=== PATIENT | female | born 1995 | race Caucasian/White ===

== ENCOUNTER 2025-04-20 10:30 | Outpatient (AMB) | payer OTHER, SELFPAY ==
--- NOTE | 2025-04-20 10:33 | MHC.OFFVIS ---
Intake Visit Reasons: Neuropathy Allergies No Known Allergies Allergy (Verified 04/18/25 08:45) HPI Comments Details: The patient is a 29-year-old female presenting with paresthesia of the lower back and hands, and headache. Over the past year, she has experienced tingling sensations in her back, similar to when a foot falls asleep. These episodes occur randomly, usually a couple of times a week, lasting about 20 minutes. This sensation begins in the lower back, occasionally spreading upward and affecting the arms and hands. Despite this, the sensation does not extend to her legs, nor does it weaken them or affect urination. The condition has neither worsened over time nor been triggered by stress factors. In addition, the patient reports having headaches about five times monthly, which manifest with frontal pressure and throbbing pain. These headaches are accompanied by light and noise sensitivity but no nausea. Tylenol provides relief, and headaches occasionally follow the paresthesia episodes but not consistently. Her family medical history reveals that her siblings have been diagnosed with Multiple Sclerosis. [facility] Surgical History (Updated 04/18/25 @ 08:44 by Jerrica Leonard MA) Hx of tonsillectomy Review of Systems Const Details: Constitutional:?No fever, chills, fatigue, weight loss, or night sweats. HEENT:?No vision changes, hearing loss, nasal congestion, sore throat. Cardiovascular:?No chest pain, palpitations, orthopnea, PND, or leg swelling. Respiratory:?No cough, shortness of breath, wheezing, or hemoptysis. Gastrointestinal:?No nausea, vomiting, abdominal pain, diarrhea, or constipation. Genitourinary:?No dysuria, frequency, incontinence, or hematuria. Musculoskeletal:?No joint pain, stiffness, weakness, or muscle aches. Neurological:? As in HPI Psychiatric:?No anxiety, depression, mood swings, sleep disturbance, or hallucinations. Endocrine:?No heat/cold intolerance, polydipsia, polyuria, or hair/skin changes. Hematologic/Lymphatic:?No easy bruising, bleeding, or lymphadenopathy. Integumentary (Skin):?No rash, lesions, itching, or color changes. Allergic/Immunologic:?No seasonal allergies, hives, or recurrent infections. Physical Exam Neuro Other: Mental Status: Alert and oriented to person, place, and time. Normal attention. Normal spontaneous speech, fluency, and comprehension. No obvious issues with mood and memory. Affect is appropriate. Cranial Nerves: CN II: Visual leonardo full to confrontation, visual acuity intact. CN III, IV, : Pupils equal, round, reactive to light and accommodation. Extraocular movements are normal. CN V: Facial sensation is normal. CN VII: Facial movements symmetrical. CN VIII: Hearing intact to bedside conversation is normal. CN IX, X: Palate elevates symmetrically. CN XI: Shoulder shrug and head turn symmetrical. CN XII: Tongue midline without atrophy or fasciculations. Motor: Bulk and tone normal in all extremities. No significant muscle weakness in arms and legs. No drift. Reflexes: Deep tendon reflexes 2+ and symmetric. Plantar response down-going bilaterally. Coordination: Fzlsqm-qx-vbrw and tkqn-ic-cmfg testing normal. No dysmetria. Gait and Station: No obvious gait abnormality. No ataxia or instability. Sensory: Intact to light touch, pinprick, and vibration. Romberg is negative. Extrapyramidal: Full facial expressions and blinking. No rigidity. Movements are appropriate with no tremor or abnormality. Speech: Normal; no dysarthria or tremor. Assessment & Plan Assessment & Plan (1) Paresthesias: Code(s): R20.2 - Paresthesia of skin Category: Medical (2) Migraine with aura: Code(s): G43.109 - Migraine with aura, not intractable, without status migrainosus Category: Medical Qualifiers: Status migrainosus presence: without status migrainosus Intractability: not intractable Qualified Code(s): G43.109 - Migraine with aura, not intractable, without status migrainosus Plan Impression: Young woman with c/o uncomfortable paresthesias in lower and middle back, intermittent, for a year. She also c/o similar feeling in her hands and arms, progressing in a few minutes, ending in 5-20 minutes, and sometimes ending up with a headache lasting for hours. Diagnostic possibilities included migraine with aura with additional possibility of demylinating disease. There was no overt psychological disease. Rec: MRI cervical and thoracic spine w and w/o cont. She might also need MRI of brain. Orders: Orders MR cervical spine wo/w con Today R20.2 - Paresthesia of skin MR thoracic spine wo/w con Today R20.2 - Paresthesia of skin Coding Level of Care Code Tele New Pt Level 5 (96493) Diagnoses Paresthesias R20.2 Migraine with aura and without status migrainosus, not intractable G43.109 Status migrainosus presence: without status migrainosus Intractability: not intractable
--- OUTSIDE RECORDS SUMMARY | 2025-04-20 11:21 | XMS_ITS ---
[facility] Name [facility] Results Test Name/Text Value Interpretation Date Range Source MCV RBC AUTO 88.2 fL Normal 08/20/2023 78 - 100 [facility] H HGB BLD MCNC 13.2 g/dL Normal 08/20/2023 12.5 - 16 [facility] H MONOCYTES NO. BLD AUTO 1.0 K/uL Above high normal 0 - 0.8 [facility] HCT VFR BLD AUTO 38.7 % Normal 08/20/2023 37 - 47 [facility] IMMATURE GRANULOCYTE, ABSOLUTE 0.05 k/uL Normal 08/20/2023 - 0.1 [facility] MONOCYTES NFR BLD AUTO 8.9 % Normal 08/20/2023 2 - 12 [facility] WBC NO. BLD AUTO 11.5 K/uL Above high normal 08/20/2023 4 - 10.5 [facility] PLATELET NO. BLD AUTO 238.0 K/uL Normal 08/20/2023 150 - 450 [facility] NUCLEATED RBC 0.0 % Normal 08/20/2023 0 - [address] [facility] NFR BLD AUTO 0.6 % Normal 08/20/2023 0 - 6 [facility] PMV BLD AUTO 11.7 fL Above high normal 08/20/2023 7.4 - 11 .4 [facility] RBC NO. BLD AUTO 4.39 M/uL Normal 08/20/2023 4.2 - 5.4 CT [facility] BASOPHILS IN BLOOD BY AUTOMATED COUNT 0.1 K/uL Normal 08/20/2023 0 - 0.2 [facility] RDW RBC AUTO RTO 12.5 % Normal 08/20/2023 12.1 - 16.2 [facility] LYMPHOCYTES NO. BLD AUTO 2.8 K/uL Normal 08/20/2023 1 - 3.2 [facility] NEUTROPHILS NFR BLD AUTO 65.0 % Normal 08/20/2023 44 - 74 [facility] LYMPHOCYTES NFR BLD AUTO 24.7 % Normal 08/20/2023 20 - 48 [facility] BASOPHILS NFR BLD AUTO 0.4 % Normal 08/20/2023 0 - [facility] RBC AUTO MCNC 34.1 g/dL Normal 08/20/2023 32 - 36 [facility] NEUTROPHILS NO. BLD AUTO 7.4 K/uL Normal 08/20/2023 1.8 - 7.8 [facility] EOSINOPHIL NO. BLD AUTO 0.1 K/uL Normal 08/20/2023 0 - 0 .5 [facility] IMMATURE GRANULOCYTE, PERCENT 0.4 % Normal 08/20/2023 0 - 1 [facility] MCH RBC QN AUTO 30.1 pg Normal 08/20/2023 25 - 33 [facility] PT TIME PPP 12.4 sec Normal 08/20/2023 10.5 - 13.3 [facility] INR PPP 1.0 Normal 08/20/2023 0.8 - 1.1 [facility] BUN SERPL MCNC 8.0 mg/dL Normal 08/20/2023 7 - 17 [facility] CALCIUM SERPL MCNC 9.5 mg/dL Normal 08/20/2023 8.4 - 10.[facility] CREAT SERPL MCNC 0.6 mg/dL Normal 08/20/2023 0.5 - 1 CT [facility] HCO3 SER SCNC 26.0 mmol/L Normal 08/20/2023 24 - 32 [facility] ANION GAP SERPL SCNC 8.0 mmol/L Normal 08/20/2023 5 - [facility] GLUCOSE SERPL MCNC 100.0 mg/dL Normal 08/20/2023 70 - 199 [facility] CHLORIDE SERPL SCNC 101.0 mmol/L Normal 08/20/2023 98 - 1 07 [facility] SODIUM SERPL SCNC 135.0 mmol/L Normal 08/20/2023 135 - 14 [facility] POTASSIUM [facility]PL SCNC 3.7 mmol/L Normal 08/20/2023 3.5 - 5 .1 [facility] GLUCOSE BLDC GLUCOMTR MCNC 102.0 mg/dL Normal 08/20/2023 70 - 199 [facility] Encounters Encounter Type Encounter Reason Primary Diagnosis Location Date Inpatient Anesthesia of skin Anesthesia of skin [facility] 08/20/2023 Emergency Unspecified symptoms and signs involving the nervous system Unspecified symptoms and signs involving the nervous system [facility] 08/20/2023 Care Team Organization Name Specialty Phone Email Start Date End Da te [facility] 3 02/20/2025 [facility] 202202/20/2025 [facility] 08/20/202307/30 [facility] 08/20/2023 [facility] ENMANUEL COY Primary [facility] 08/05/2022 05/16/20 24
--- OUTSIDE RECORDS SUMMARY | 2025-04-20 11:21 | XMS_ITS | Clinical Summary ---
Author Organization [address] [facility] Address [address] [place] [address] Phone Care Team Providers Care C.O.D. Audit Clerk Name Role Phone Kim Edwards MD Primary Care Provider [phone] Allergies No known active allergies Medications cholecalciferol (Vitamin D3) 50 mcg (2,000 unit) tablet Take 1 tablet (2,000 Units total) by mouth 1 (one) time each day. 90 tablet 2 12/29/2024 Active Surgical History Surgery Date Site/Laterality Comments TONSILLECTOMY N/A PROCEDURE: HISTORICAL TONSILLECTOMY Family History Medical History Relation Name Comments Breast cancer Aunt Maternal, 30s Diabetes Brother Breast cancer Maternal Grandmother Breast cancer Other 1 Male maternal cousin, 30s Breast cancer Other 2 Male maternal cousin, 30s Brain cancer Other 3 Nephew Other: skin cancer Sister Relation Name Status Comments Aunt Brother Maternal Grandmother Other 1 Alive Other 2 Alive Other 3 Alive Sister Social History Tobacco Use Types Packs/Day Years Used Date Smoking Tobacco: Never Smokeless Tobacco: Never Tobacco Cessation:Counseling Given: Not Answered Alcohol Use Standard Drinks/Week Comments Yes 1 (1 standard drink = 0.6 oz pur e alcohol) Comments Unknown Sex and Gender Information Value Date Recorded Sex Assigned at Not on file Legal Sex Female 11:31 PM EST Gender Identity Not on file Sexual Orientation Not on file Obstetrics History Last Filed Vital Signs Vital Sign Reading Time Taken Comments Blood Pressure 100/76 12/26/2024 3:30 PM EDT Pulse 90 12/26/2024 3:30 PM EDT Temperature 36.9 C (98.4 F) 12/26/2024 3:30 PM EDT Respiratory Rate - - Oxygen Saturation 100% 12/26/2024 3:30 PM EDT Inhaled Oxygen Concentration - - Weight 44.5 kg (98 lb) 12/26/2024 3:30 PM EDT Height 157.5 cm (5' 2 ) 06/22/2024 9:27 AM EDT Body Mass Index 17.92 06/22/2024 9:27 AM EDT Plan of Treatment Upcoming Encounters Date Type Department Care Team (Late st Contact Info) Description 06/23/2025 10:30 AM EDT Office Visit Internal Medicine - [place] [address] [place] [address] Kim Edwards MD [address] [place] [address] Health Maintenance Due Date Last Done Comments Hepatitis B Vaccines (1 of 3 - 19+ 3-dose series) 2012 Cervical Cancer Screening: P ap Smear 2014 Social Influencers of Health Screening 09/11/2022 COVID-19 Vaccine (1 - 2023-2 5 season) 2024 Depression Screening 09/28/2024 Influenza Vaccine (#1) 2025 DTaP,Tdap,and Td Vaccines (2 - Td or Tdap) 11/03/2028 11/03/2018 Cholesterol Screening (Lipid Panel) 12/27/2029 12/27/2024, 06/22/2024 HIV Screening Completed 12/27/2024 Hepatitis C Screening Completed 12/27/2024 HIB Vaccines Aged Out No longer eligi ble based on patient's age to complete this topic HPV Vaccines Aged Out No longer eligi ble based on patient's age to complete this topic Hepatitis A Vaccines Aged Out No long er eligible based on patient's age to complete this topic IPV Vaccines Aged Out No longer eligi ble based on patient's age to complete this topic MMR Vaccines Aged Out No longer eligi ble based on patient's age to complete this topic Meningococcal ACWY Vaccine Aged Out N o longer eligible based on patient's age to complete this topic Meningococcal B Vaccine Aged Out No l onger eligible based on patient's age to complete this topic Pneumococcal Vaccine: Pediatrics (0 to 5 Years) and At-Risk Patients (6 to 49 Years) Aged Out No longer eligible b ased on patient's age to complete this topic RSV Immunization Patients Under 20 months Aged Out No longer eligible b ased on patient's age to complete this topic Varicella Vaccines Aged Out No longer eligible based on patient's age to complete this topic Procedures Procedure Name Priority Date/Time Associated Diagnosis Comments HEPATITIS C ANTIBODY Routine 12/27/2024 8:23 AM EDT Vitamin D deficiency Other fatigue Adult general medical examination Abnormal weight loss HIV 1, 2 ANTIBODY, P24 ANTIGEN WITH REFLEX TO DIFFERENTIATION Routine 12/27/2024 8:23 AM EDT Vitamin D deficiency Other fatigue Adult general medical examination Abnormal weight loss LIPID PANEL WITH REFLEX TO DIRECT LDL Routine 12/27/2024 8:23 AM EDT Vitamin D deficiency Other fatigue Adult general medical examination Abnormal weight loss from Last 3 Months or Most Recently Relevant to Health Maintenance Results * Hepatitis C antibody (12/27/2024 8:23 AM EDT) Hepatitis C Antibody Negative Negative LAB CHEMISTRY METHOD 12/27/2024 12:10 PM EDT [facility] Blood Venous blood specimen / Unknown Venipuncture / Unknown 12/27/2024 8:23 AM EDT 12/27/2024 9:01 AM EDT us Kim Edwards MD LAB BLOOD ORDERABLES Final Res ult [facility] [address] [place] [address], [place] [phone] * HIV 1,2 antibody, p24 antigen with reflex to differentiation (12/27/2024 8:23 AM EDT) HIV Combo AB/AG Negative Negative LAB CHEMISTRY METHOD 12/27/2024 12:11 PM EDT [facility] Blood Venous blood specimen / Unknown Venipuncture / Unknown 12/27/2024 8:23 AM EDT 12/27/2024 9:01 AM EDT Narrative [facility] - 12/27/2024 12:11 PM EDT This assay is a 4th generation assay allowing for earlier detection of HIV infection by detecting the presence of the HIV-1 p24 antigen as well as the traditional antibodies to HIV type 1 (including group O) and type 2. Use of a 4th generation assay is the current CDC recommendation for HIV screening. us Kim Edwards MD LAB BLOOD ORDERABLES Final Res ult [facility] [address] [place] [address], [place] [phone] * Lipid panel with reflex to direct LDL (12/27/2024 8:23 AM EDT) Cholesterol 164 0 - 200 mg/dL LAB CHEMISTRY METHOD 12/27/2024 9:56 AM [facility] Triglycerides 75 0 - 150 mg/dL LAB CHEMISTRY METHOD 12/27/2024 9:56 AM [facility] HDL 63 >=40 mg/dL LAB CHEMISTRY METHOD 12/27/2024 9:56 AM [facility] LDL Calculated 86 0 - 100 mg/dL LAB CHEMISTRY METHOD 12/27/2024 9:56 AM [facility] VLDL Cholesterol Rudy 15 mg/dL LAB CHEMISTRY METHOD 12/27/2024 9:56 AM [facility] Non HDL Chol. (LDL+VLDL) 101 <145 mg/dL LAB CHEMISTRY METHOD 12/27/2024 9:56 AM [facility] Chol/HDL Ratio 2.6 0.0 - 4.4 LAB CHEMISTRY METHOD 12/27/2024 9:56 AM [facility] Blood Venous blood specimen / Unknown Venipuncture / Unknown 12/27/2024 8:23 AM EDT 12/27/2024 9:01 AM EDT us Kim Edwards MD LAB BLOOD ORDERABLES Final Res ult [facility] [address] [place] [address], from Last 3 Months or Most Recently Relevant to Health Maintenance Insurance MEDICAID - [place] [facility] [address] [employer] Care Teams C.O.D. Audit Clerk Relationship Specialty Start Date End Date Kim Edwards MD [address] [facility] [address] [place] [id number] PCP - General Internal Medicine 02/12/22
--- OUTSIDE RECORDS SUMMARY | 2025-04-20 11:21 | XMS_ITS | Clinical Summary ---
Author Organization [facility] Address [address] [place] [address] Care Team Providers Care Express Manager Name Role Phone Unavailable Primary Care Provider Unavailabl e Allergies No known active allergies Medications Medication Sig Dispensed Refills Start Date End Date Status promethazine (PHENERGAN) 12.5 MG tablet Take 1 tablet (12.5 mg total) by mouth every 6 (six) hours as needed for nausea. 0 Active Active Problems Problem Noted Date Diagnosed Date Anemia during in third trimester 02/18 Right facial numbness 08/20/2023 Estimated Date of Delivery Comme nts Yes 04/16/2024 Social History Tobacco Use Types Packs/Day Years Used Date Smoking Tobacco: Never Smokeless Tobacco: Never Tobacco Cessation:Counseling Given: Not Answered Alcohol Use Standard Drinks/Week Comments Never 0 (1 standard drink = 0.6 oz pur e alcohol) Estimated Date of Delivery Comme nts Yes 04/16/2024 Sex and Gender Information Value Date Recorded Sex Assigned at Female 08/20/2023 7:43 PM EST Gender Identity Not on file Sexual Orientation Not on file Job Start Date Occupation Industry Not on file Not on file Not on file Last Filed Vital Signs Vital Sign Reading Time Taken Comments Blood Pressure 109/62 02/19/2024 11:46 AM EDT Pulse 91 02/19/2024 11:46 AM EDT Temperature 36.8 C (98.3 F) 02/19/2024 11:46 AM EDT Respiratory Rate 17 08/21/2023 6:23 AM EST Oxygen Saturation 98% 02/19/2024 11:46 AM EDT Inhaled Oxygen Concentration - - Weight 68.9 kg (152 lb) 02/19/2024 11:46 AM EDT Height 160 cm (5' 3 ) 08/20/2023 7:09 PM EST Body Mass Index 26.93 08/20/2023 7:09 PM EST Plan of Treatment Health Maintenance Due Date Last Done Comments Hepatitis B Vaccines (1 of 3 - 3-dose series) 1993 Hepatitis C Screening 1993 COVID-19 Vaccine (#1) 1993 Depression Screening 2005 Preventative Health Evaluation 2011 DTap / Tdap / Td (1 - Tdap) 2012 Cervical Cancer Screening (P ap Smear) 2014 Influenza Vaccine (#1) 2025 RSV Adult > 60+ Yrs or Pregn ant (1 - 1-dose 75+ series) 2068 Pneumococcal Vaccine Aged Out No long er eligible based on patient's age to complete this topic RSV Ped < 20 months Aged Out No longe r eligible based on patient's age to complete this topic Tete Du Personal/Family Self 1995 [address] [place] [address]
== END 2025-04-20 11:06 | disposition home or self-care (01) ==
LOC: HO.HSM 10:30
PROVIDERS: PCP Internal Medicine; Visit Provider Psychiatry & Neurology Neurology
DX: R20.2 Paresthesia of skin (principal); G43.109 Migraine with aura, not intractable, without status migrainosus
CPT/HCPCS: 99204

== ENCOUNTER → 2025-04-20 10:30 | Outpatient (BNVA) | payer OTHER, SELFPAY | PROVIDERS: PCP Internal Medicine; Visit Provider Psychiatry & Neurology Neurology | DX: R20.2 Paresthesia of skin (principal); G43.109 Migraine with aura, not intractable, without status migrainosus | CPT/HCPCS: 99202 ==

== ENCOUNTER 2025-05-11 10:16 | Outpatient (REF) | payer OTHER, SELFPAY ==
--- NOTE | ~2025-05-11 | MR_ITS ---
EXAMINATION: MR CERVICAL SPINE WITHOUT AND WITH CONTRAST CLINICAL INFORMATION: Paresthesias COMPARISON: None available. TECHNIQUE: MRI of the cervical spine was obtained using routine sequences with and without contrast. Intravenous contrast: (Gadavist) gadolinium based contrast 5.0 mL. No reported immediate complications. FINDINGS: Craniocervical junction is intact. Normal position of the cerebellar tonsils. There is no abnormal enhancement within the cervical spinal cord or the prevertebral compartment. No bone marrow STIR signal abnormality. There is a focal hyperintense T2 signal in the posterior intervertebral disc of C5-6. There is mild reverse curvature apex at C5-6. There is normal alignment. C2-3: No disc herniation. No neuroforamina stenosis. C3-4: No disc herniation. No neuroforamina stenosis. C4-5: No disc herniation. No neuroforamina stenosis. C5-6: Broad-based disc osteophyte compresses formation resulting in ventral deformity of the thecal sac. No cord compression. No neuroforamina stenosis. C6-7: Broad-based disc osteophyte compresses formation. No cord compression. No neuroforamina stenosis. C7-T1: No disc herniation. No neuroforamina stenosis. No prevertebral compartment hematoma, mass or fluid collection. Flow-void signal within the main vessels is normal. Left vertebral artery is dominant. MR/MR cervical spine wo/w con IMPRESSION: No acute fracture or listhesis or cord compression. No abnormal enhancement. Cervical spondylosis C5-6 and to a lesser extent C6-7. Electronically signed by: Jamal Thacker MD 05/11/2025 12:01 PM EDT
--- NOTE | ~2025-05-11 | MR_ITS ---
EXAMINATION: MR THORACIC SPINE WITHOUT AND WITH CONTRAST CLINICAL INFORMATION: Paresthesia COMPARISON: None available. TECHNIQUE: MRI of the thoracic spine was obtained using routine sequences with and without contrast. Intravenous contrast: (Gadavist) gadolinium based contrast 5.0 mL. No reported immediate complication. FINDINGS: No bone marrow STIR signal abnormality. Normal alignment. Thoracic spinal cord caliber and signal are normal. No abnormal enhancement within the thoracic spinal cord or the prevertebral compartment. There is no central spinal canal stenosis or cord compression from T1 to T12. The conus medullaris and 6 at pedicle of L1 with normal signal. No prevertebral compartment hematoma, mass or fluid collection. Probable small trace pleural effusions. MR/MR thoracic spine wo/w con IMPRESSION: No abnormal enhancement. No cord compression, cord edema and/or myelopathy. No disc herniation. No acute fracture or gross listhesis., Electronically signed by: Jamal Thacker MD 05/11/2025 12:07 PM EDT
--- OUTSIDE RECORDS SUMMARY | 2025-05-11 11:18 | XMS_ITS | Clinical Summary ---
Author Organization 175 [facility] Address [address] [place] [address] Phone Care Team Providers Care Med Dir Name Role Phone Kim Edwards MD Primary Care Provider [phone] Allergies No known active allergies Medications cholecalciferol [...] AM EDT Office Visit Internal Medicine - [place] [address] [place] [address] Kim Edwards MD [address] [place] [address] Health Maintenance Due Date Last [...] LAB CHEMISTRY METHOD 12/27/2024 12:10 PM EDT [facility] Blood Venous blood specimen / Unknown Venipuncture / Unknown 12/27/2024 8:23 AM EDT 12/27/2024 9:01 AM EDT us Kim Edwards MD LAB BLOOD ORDERABLES Final Res ult [facility] [address] [place] [address], [place] [phone] * HIV 1,2 antibody, p24 antigen with reflex to differentiation (12/27/2024 8:23 AM EDT) HIV Combo AB/AG Negative Negative LAB CHEMISTRY METHOD 12/27/2024 12:11 PM EDT [facility] Blood Venous blood specimen / Unknown Venipuncture / Unknown 12/27/2024 8:23 AM EDT 12/27/2024 9:01 AM EDT Narrative [facility] - 12/27/2024 12:11 PM EDT [...] MD LAB BLOOD ORDERABLES Final Res ult [facility] [address] [place] [address], [place] [phone] * Lipid panel with reflex to direct LDL (12/27/2024 8:23 AM EDT) Cholesterol 164 0 - 200 mg/dL LAB CHEMISTRY METHOD 12/27/2024 9:56 AM [facility] Triglycerides 75 0 - 150 mg/dL LAB CHEMISTRY METHOD 12/27/2024 9:56 AM [facility] HDL 63 >=40 mg/dL LAB CHEMISTRY METHOD 12/27/2024 9:56 AM [facility] LDL Calculated 86 0 - 100 mg/dL LAB CHEMISTRY METHOD 12/27/2024 9:56 AM [facility] VLDL Cholesterol Rudy 15 mg/dL LAB CHEMISTRY METHOD 12/27/2024 9:56 AM [facility] Non HDL Chol. (LDL+VLDL) 101 <145 mg/dL LAB CHEMISTRY METHOD 12/27/2024 9:56 AM [facility] Chol/HDL Ratio 2.6 0.0 - 4.4 LAB CHEMISTRY METHOD 12/27/2024 9:56 AM [facility] Blood Venous blood specimen / Unknown Venipuncture / Unknown 12/27/2024 8:23 AM EDT 12/27/2024 9:01 AM EDT us Kim Edwards MD LAB BLOOD ORDERABLES Final Res ult [facility] [address] [place] [address], from Last 3 Months or Most Recently Relevant to Health Maintenance Insurance [place]ICAID - [place] [facility] [employer] Care Teams Med Dir Relationship Specialty Start Date End Date Kim Edwards MD [address] [facility] [address] [place] [phone] PCP - General Internal Medicine 02/12/22
--- OUTSIDE RECORDS SUMMARY | 2025-05-11 11:18 | XMS_ITS | Clinical Summary ---
Author Organization [facility] Address [address] [place] [address] Care Team Providers Care School Administrator Name Role Phone Unavailable Primary Care Provider [...] topic Tete Du Personal/Family Self 1995 [address] [facility] [place] [facility] [place] [address]
== END 2025-05-11 10:17 | disposition home or self-care (01) ==
LOC: HO.MRI 10:16
PROVIDERS: PCP Internal Medicine; Visit Provider Psychiatry & Neurology Neurology
DX: R20.2 Paresthesia of skin (principal)
CPT/HCPCS: 72156; 72157; A9585

== ENCOUNTER → 2025-05-11 10:28 | Outpatient (BNV) | payer OTHER, SELFPAY | PROVIDERS: PCP Internal Medicine; Visit Provider Radiology Diagnostic Radiology | DX: M47.812 Spondylosis without myelopathy or radiculopathy, cervical region (principal); R20.2 Paresthesia of skin | CPT/HCPCS: 72156; 72157 ==

== ENCOUNTER 2025-06-20 12:24 | Outpatient (REF) | payer OTHER, SELFPAY ==
[2025-06-21 09:58] LABS: Anti Nuclear Antibody Screen NEGATIVE (NEGATIVE)
== END 2025-06-20 12:25 | disposition home or self-care (01) ==
LOC: HO.LAB 12:24
PROVIDERS: PCP Internal Medicine; Visit Provider Psychiatry & Neurology Neurology
DX: R20.2 Paresthesia of skin (principal); G43.109 Migraine with aura, not intractable, without status migrainosus; J90 Pleural effusion, not elsewhere classified
CPT/HCPCS: 36415; 85652; 86038; 86225; 99212

== ENCOUNTER 2025-06-20 12:24 | Outpatient (AMB) | payer OTHER, SELFPAY ==
--- NOTE | 2025-06-20 12:28 | A.OFFVIS_ITS ---
Intake Visit Reasons: AFTER MRI Allergies No Known Allergies Allergy (Verified 04/18/25 08:45) HPI Comments Details: 30 yo woman with c/o uncomfortable paresthesias in lower and middle back, intermittent, for a year. She also c/o similar feeling in her hands and arms, progressing in a few minutes, ending in 5-20 minutes, and sometimes ending up with a headache lasting for hours. Diagnostic possibilities included migraine with aura with additional possibility of demylinating disease. There was no overt psychological disease. She is presenting with numbness in the back and arms. The numbness starts at the lower back near the tailbone and moves up to the mid-back, and she also experiences it in the arms at times. Initial MRIs were conducted and returned normal results; however, the patient expressed concerns after perceiving a report's statement regarding abnormal fluid presence. Despite extensive MRIs which showed no anomalies, uncertainty remains regarding the cause of these symptoms. The absence of pain or additional neurological symptoms was noted. Discussion included a BRAVE scan to assess the brain for possible Multiple Sclerosis, as it typically manifests initially in the brain, not the spinal cord. [facility] Medical History (Updated 06/20/25 @ 12:40 by Daniel Fortune MD) Paresthesias Migraine with aura Neuropathy Surgical History (Updated 04/18/25 @ 08:44 by Jerrica Leonard CMA) Hx of tonsillectomy Review of Systems Const Details: - Nervous System: Reports numbness starting at the lower back and ascending to the mid-back, occasionally affecting the arms Physical Exam Neuro Other: She is alert and awake with normal spontaneity of speech fluency comprehension and affect. Balance gait and coordination are normal. Assessment & Plan Assessment & Plan (1) Paresthesias: Comment: MRI C + T spine [place] [facility] in [place]25: WNL, small pleural eff noted Code(s): R20.2 - Paresthesia of skin Category: Medical (2) Migraine with aura: Code(s): G43.109 - Migraine with aura, not intractable, without status migrainosus Category: Medical Qualifiers: Status migrainosus presence: without status migrainosus Intractability: not intractable Qualified Code(s): G43.109 - Migraine with aura, not intractable, without status migrainosus (3) Pleural effusion: Code(s): J90 - Pleural effusion, not elsewhere classified Category: Medical Plan 30 years old woman with unclear etiology of symptoms of paresthesias and exam revealing hyperreflexia. Cervical and thoracic spine MRI did not reveal any sign of demyelinating disease or alternate lesion. MRI of brain was requested to rule out demyelinating disease. As far as small amount of pleural effusion noted on her scan, etiology is unclear. She was not having any overt medical illness. Couple of laboratories were ordered to rule out some autoimmune conditions Orders: Orders MR head/brain wo/w con Today R20.2 - Paresthesia of skin Anti DNA DS Antibody Today R20.2 - Paresthesia of skin Erythrocyte Sedimentation Rate Today R20.2 - Paresthesia of skin REGI Reflex Titer and Pattern Today R20.2 - Paresthesia of skin Coding Level of Care Code Est Pt Level 5 (49356) Diagnoses Paresthesias R20.2 Migraine with aura and without status migrainosus, not intractable G43.109 Status migrainosus presence: without status migrainosus Intractability: not intractable Pleural effusion J90
--- OUTSIDE RECORDS SUMMARY | 2025-06-20 15:18 | XMS_ITS | Clinical Summary ---
Author Organization 175 [facility] Address [address] [place] [address] Phone Care Team Providers Care Archivist Political History Name Role Phone Kim Edwards MD Primary Care Provider Allergies No known active allergies Medications cholecalciferol [...] AM EDT Office Visit Internal Medicine - [place] [address] [place] [address] Kim Edwards MD [address] [place] [address] Health Maintenance Due Date Last Done Comments Hepatitis B Vaccines (1 of 3 - 19+ 3-dose series) 2012 Cervical Cancer Screening: P ap Smear 2014 Social Influencers of Health Screening 09/11/2022 Depression Screening 09/28/2024 COVID-19 Vaccine (1 - 2023-2 5 season) 2025 Influenza Vaccine (#1) 2025 DTaP,Tdap,and Td Vaccines [...] LAB CHEMISTRY METHOD 12/27/2024 12:10 PM EDT [facility] Blood Venous blood specimen / Unknown Venipuncture / Unknown 12/27/2024 8:23 AM EDT 12/27/2024 9:01 AM EDT us Kim Edwards MD LAB BLOOD ORDERABLES Final Res ult [facility] [address] [place] [address], [place] [phone] * HIV 1,2 antibody, p24 antigen with reflex to differentiation (12/27/2024 8:23 AM EDT) HIV Combo AB/AG Negative Negative LAB CHEMISTRY METHOD 12/27/2024 12:11 PM EDT [facility] Blood Venous blood specimen / Unknown Venipuncture / Unknown 12/27/2024 8:23 AM EDT 12/27/2024 9:01 AM EDT Narrative [facility] - 12/27/2024 12:11 PM EDT This [...] MD LAB BLOOD ORDERABLES Final Res ult [facility] [address] [place] [address], [place] [phone] * Lipid panel with reflex to direct LDL (12/27/2024 8:23 AM EDT) Cholesterol 164 0 - 200 mg/dL LAB CHEMISTRY METHOD 12/27/2024 9:56 AM [facility] Triglycerides 75 0 - 150 mg/dL LAB CHEMISTRY METHOD 12/27/2024 9:56 AM [facility] HDL 63 >=40 mg/dL LAB CHEMISTRY METHOD 12/27/2024 9:56 AM [facility] LDL Calculated 86 0 - 100 mg/dL LAB CHEMISTRY METHOD 12/27/2024 9:56 AM [facility] VLDL Cholesterol Rudy 15 mg/dL LAB CHEMISTRY METHOD 12/27/2024 9:56 AM [facility] Non HDL Chol. (LDL+VLDL) 101 <145 mg/dL LAB CHEMISTRY METHOD 12/27/2024 9:56 AM [facility] Chol/HDL Ratio 2.6 0.0 - 4.4 LAB CHEMISTRY METHOD 12/27/2024 9:56 AM [facility] Blood Venous blood specimen / Unknown Venipuncture / Unknown 12/27/2024 8:23 AM EDT 12/27/2024 9:01 AM EDT us Kim Edwards MD LAB BLOOD ORDERABLES Final Res ult [facility] [address] [place] [address], from Last 3 Months or Most Recently Relevant to Health Maintenance Insurance [place]ICA[place] - [place] [facility] PLAN Care Teams Archivist Political History Relationship Specialty Start Date End Date Kim Edwards MD 175 [facility] [address] [place] [id number] PCP - General Internal Medicine 02/12/22
--- OUTSIDE RECORDS SUMMARY | 2025-06-20 15:18 | XMS_ITS | Clinical Summary ---
Author Organization [facility] Address [address] [place] [address] Care Team Providers Care Manager Route Name Role Phone Unavailable Primary Care Provider [...] topic Tete Du Personal/Family Self 1995 [address] [place] [address]
== END 2025-06-20 12:36 | disposition home or self-care (01) ==
LOC: HO.HSM 12:25
PROVIDERS: PCP Internal Medicine; Visit Provider Psychiatry & Neurology Neurology
DX: R20.2 Paresthesia of skin (principal); G43.109 Migraine with aura, not intractable, without status migrainosus; J90 Pleural effusion, not elsewhere classified
CPT/HCPCS: 99214

== ENCOUNTER → 2025-07-23 12:49 | Outpatient (BNV) | payer OTHER, SELFPAY | PROVIDERS: PCP Internal Medicine; Visit Provider Radiology Diagnostic Radiology | DX: R20.2 Paresthesia of skin (principal) | CPT/HCPCS: 70553 ==

== ENCOUNTER 2025-07-23 12:54 | Outpatient (REF) | payer OTHER, SELFPAY ==
--- NOTE | ~2025-07-23 | MR_ITS ---
EXAMINATION: MR BRAIN WITHOUT THEN WITH IV CONTRAST HISTORY: R20.2 - Paresthesia of skin TECHNIQUE: Sagittal T1 and FLAIR, and axial T1, FLAIR, T2, gradient echo, and diffusion weighted MR images of the brain were obtained. Subsequently, axial, and coronal T1-weighted images were obtained after the administration of intravenous gadolinium. 5 mL Gadavist was administered. COMPARISON: There are no prior studies available for comparison. FINDINGS: The pituitary is normal in size. The cerebellar tonsils are normally located. The brain parenchyma is unremarkable, demonstrating normal estrada/white differentiation. No foci of abnormal signal intensity are identified. The ventricular system is normal in size and configuration. There is no mass effect or midline shift. No intra or extra-axial fluid collections are identified. There are no foci of restricted diffusion. There is no abnormal contrast enhancement. Normal vascular flow voids are noted in the basilar and carotid arteries. The visualized paranasal sinuses are clear. MR/MR head/brain wo/w con IMPRESSION: Unremarkable MRI of the brain without and with contrast. Electronically signed by: Eddi Chavez MD 07/24/2025 08:34 AM EDT
--- OUTSIDE RECORDS SUMMARY | 2025-07-23 13:02 | XMS_ITS | Clinical Summary ---
Author Organization 175 [facility] Address [address] [place] [address] Phone Care Team Providers Care Pacs Specialist Name Role Phone Kim Edwards MD Primary Care Provider [phone] Allergies No known active allergies Medications cholecalciferol (Vitamin D3) 50 mcg (2,000 unit) tablet Take 1 tablet (2,000 Units total) by mouth 1 (one) time each day. 90 tablet 2 5 Active Additional Information Patient not taking.Reported on 06/23/2025 cholecalciferol (Vitamin D3) 50 mcg (2,000 unit) tablet Take 1 tablet (2,000 Units total) by mouth 1 (one) time each day. 90 tablet 2 Active cyanocobalamin (Vitamin B-12) 500 mcg tablet Take 1 tablet (500 mcg total) by mouth 1 (one) time each day. 30 each 11 5 06/23/20 Active PARoxetine (PAXIL) 20 mg tablet Take 1 tablet (20 mg total) by mouth 1 (one) time each day in the morning. 30 each 5 5 12/21/19 26 Active Active Problems Problem Noted Date Diagnosed Date Depression 06/23/2025 Vitamin D deficiency 06/23/2025 Vitamin B12 deficiency 06/23/2025 Encounters Date Type Department Care Team Description 06/23/2025 10:30 AM EDT Office Visit Internal Medicine [facility] [address] [facility] [address] [place] [address] Kim Edwards MD Adult general medical examination (Primary Dx); Depression, unspecified depression type; Vitamin D deficiency; Vitamin B12 deficiency from Last 3 Months Surgical History Surgery Date Site/Laterality Comments TONSILLECTOMY [...] Not Answered Alcohol Use Standard Drinks/Week Comments Not Currently 1 (1 standard drink = 0.6 oz pur e alcohol) Ocasionally Housing Instability Answer Date Recorde d Are you worried that in the next 2 months you may not have stable housing? No 06/22/2025 Food Access & Nutrition Answer Date Rec orded Do you have access to a vari ety of food including fruits and vegetables? Yes 06/22/2025 Health Literacy Answer Date Recorded How often do you need to hav e someone help you when you read instructions, pamphlets, or other written material from your doctor or pharmacy? Never 06/22/2025 Caregiver: How often do you need to have someone help you when you read instructions, pamphlets, or other written material from your doctor or pharmacy? Not on file 06/22/2025 Financial Risk Answer Date Recorded How hard is it for you to pa y for the very basics like food, housing, medical care, and air conditioning / heating? Not very hard 06/22/2025 Transportation Answer Date Recorded Has the lack of transportati on kept you from meetings, work, or from getting things needed for daily living? No Has the lack of transportati on kept you from medical appointments or from getting medications? No 06/22/2025 Social Isolation Answer Date Recorded How often do you feel lonely or isolated from those around you? Sometimes 06/22/2025 Food Risk Answer Date Recorded Within the past 12 months we worried whether our food would run out before we got money to buy more. Never true 06/22/2025 Within the past 12 months th e food we bought just didn't last and we didn't have money to get more. Never true 06/22/2025 Dependent Care Answer Date Recorded Do you need help finding or paying for care for your loved ones. For example, child day care teacher or elderly care for an older adult? No 06/22/2025 Education Answer Date Recorded Do you think completing more education or training, like finishing a GED, going to college, or learning a trade, would be helpful for you? No 06/22/2025 Employment and Income Answer Date Recor ded During the last four weeks, have you been actively looking for work? No 06/22/2025 Living Situation Answer Date Recorded What is your living situation? Unrecognized valu e 06/22/2025 Comments No Sex and Gender Information Value Date Recorded Sex Assigned at Not on file Legal Sex Female 11:31 PM EST Gender Identity Not on file Sexual Orientation Not on file Obstetrics History Last Filed Vital Signs Vital Sign Reading Time Taken Comments Blood Pressure 108/68 06/23/2025 10:30 AM EDT Pulse 63 06/23/2025 10:30 AM EDT Temperature 36.9 C (98.4 F) 06/23/2025 10:30 AM EDT Respiratory Rate 18 06/23/2025 10:30 AM EDT Oxygen Saturation 97% 06/23/2025 10:30 AM EDT Inhaled Oxygen Concentration - - Weight 48.1 kg (106 lb) 06/23/2025 10:30 AM EDT Height 157.5 cm (5' 2 ) 06/23/2025 10:30 AM EDT Body Mass Index 19.39 06/23/2025 10:30 AM EDT Plan of Treatment Upcoming Encounters Date Type Department Care Team (Late st Contact Info) Description 12/26/2025 9:30 AM EDT Office Visit Internal Medicine - [place] [address] [facility] [address] [place] [address] Kim Edwards MD 175 [facility] [address] [place] [address] Health Maintenance Due Date Last Done Comments Hepatitis B Vaccines (1 of 3 - 19+ 3-dose series) 2012 Cervical Cancer Screening: P ap Smear 2014 HPV Vaccines (1 - 3-dose SCD M series) 2020 COVID-19 Vaccine (1 - 2023-2 5 season) 2025 Influenza Vaccine (#1) 2025 Social Influencers of Health Screening 06/22/2026 06/22/2025 DTaP,Tdap,and Td Vaccines (2 - Td or Tdap) 11/03/2028 11/03/2018 Cholesterol Screening (Lipid Panel) 12/27/2029 12/27/2024, 06/22/2024 RSV Immunization Adult Patients (1 - 1-dose 75+ series) 2068 HIV Screening Completed 12/27/2024 Hepatitis C Screening Completed 12/27/2024 Depression Screening Completed 06/22/2025 HIB Vaccines Aged Out No longer eligi [...] LAB CHEMISTRY METHOD 12/27/2024 12:10 PM EDT [facility] Blood Venous blood specimen / Unknown Venipuncture / Unknown 12/27/2024 8:23 AM EDT 12/27/2024 9:01 AM EDT Kim Edwards MD LAB BLOOD ORDERABLES Final Res ult Performing Organization Address [facility]/ZIP Co de Phone Number [facility] [address] [place] [address], [place] [phone] * HIV 1,2 antibody, p24 antigen with reflex to differentiation (12/27/2024 8:23 AM EDT) HIV Combo AB/AG Negative Negative LAB CHEMISTRY METHOD 12/27/2024 12:11 PM EDT [facility] Blood Venous blood specimen / Unknown Venipuncture / Unknown 12/27/2024 8:23 AM EDT 12/27/2024 9:01 AM EDT Narrative [facility] - 12/27/2024 12:11 [...] MD LAB BLOOD ORDERABLES Final Res ult Performing Organization Address City/[facility]/ZIP Co de Phone Number [facility] [address] [place] [address], [place] [phone] * Lipid panel with reflex to direct LDL (12/27/2024 8:23 AM EDT) [facility] Cholesterol 164 0 - 200 mg/dL LAB CHEMISTRY METHOD 12/27/2024 9:56 AM EDT [facility] Triglycerides 75 0 - 150 mg/dL LAB CHEMISTRY METHOD 12/27/2024 9:56 AM EDT [facility] HDL 63 >=40 mg/dL LAB CHEMISTRY METHOD 12/27/2024 9:56 AM EDT [facility] LDL Calculated 86 0 - 100 mg/dL LAB CHEMISTRY METHOD 12/27/2024 9:56 AM EDT [facility] VLDL Cholesterol Rudy 15 mg/dL LAB CHEMISTRY METHOD 12/27/2024 9:56 AM EDT [facility] Non HDL Chol. (LDL+VLDL) 101 <145 mg/dL LAB CHEMISTRY METHOD 12/27/2024 9:56 AM EDT [facility] Chol/HDL Ratio 2.6 0.0 - 4.4 LAB CHEMISTRY METHOD 12/27/2024 9:56 AM EDT [facility] Blood Venous blood specimen / Unknown Venipuncture / Unknown 12/27/2024 8:23 AM EDT 12/27/2024 9:01 AM EDT us Kim Edwards MD LAB BLOOD ORDERABLES Final Res ult [facility] [address] [place] [address], from Last 3 Months or Most Recently Relevant to Health Maintenance Insurance MEDICAID - [place] [facility] PLAN Care Teams Pacs Specialist Relationship Specialty Start Date End Date Kim Edwards MD [address] [facility] [address] [place] [address] PCP - General Internal Medicine 02/12/22
--- OUTSIDE RECORDS SUMMARY | 2025-07-23 13:02 | XMS_ITS | Clinical Summary ---
Author Organization [facility] Address [address] [place] [address] Care Team Providers Care Neurologist Name Role Phone Unavailable Primary Care Provider [...] topic Tete Du Personal/Family Self 1995 [address] [facility] [address]
== END 2025-07-23 12:55 | disposition home or self-care (01) ==
LOC: HO.MRI 12:54
PROVIDERS: PCP Internal Medicine; Visit Provider Psychiatry & Neurology Neurology
DX: R20.2 Paresthesia of skin (principal)
CPT/HCPCS: 70553; A9585

== ENCOUNTER 2025-08-08 15:30 | Outpatient (AMB) | payer OTHER, SELFPAY ==
--- NOTE | 2025-08-08 15:35 | MHC.OFFVIS ---
Intake Visit Reasons: after MRI Allergies No Known Allergies Allergy (Verified 04/18/25 08:45) HPI Comments Details: 30 years old woman with unclear etiology of symptoms of paresthesias and exam revealing hyperreflexia. Cervical and thoracic spine MRI did not reveal any sign of demyelinating disease or alternate lesion. She was here complaining that she was still getting almost daily headaches, and numbness and tingling feeling in her lower back and sometime in her arms. Sometime people with noticed that her left eye was twitching. There was no alteration of consciousness. There was no watering for my. [facility] Medical History (Updated 08/08/25 @ 15:44 by Daniel Fortune MD) Paresthesias Migraine with aura Neuropathy Surgical History (Updated 04/18/25 @ 08:44 by Jerrica Leonard CMA) Hx of tonsillectomy Review of Systems Narrative Almost daily headaches and paresthesias. No change in gait No change in bowel bladder difficulties No change in personality Physical Exam Neuro Other: Mental Status: Alert and oriented to person, place, and time. Normal attention. Normal spontaneous speech, fluency, and comprehension. No obvious issues with mood and memory. Affect is appropriate. Cranial Nerves: CN II: Visual leonardo full to confrontation, visual acuity intact. CN III, IV, : Pupils equal, round, reactive to light and accommodation. Extraocular movements are normal. CN V: Facial sensation is normal. CN VII: Facial movements symmetrical. CN VIII: Hearing intact to bedside conversation is normal. CN IX, X: Palate elevates symmetrically. CN XI: Shoulder shrug and head turn symmetrical. CN XII: Tongue midline without atrophy or fasciculations. Motor: Bulk and tone normal in all extremities. No significant muscle weakness in arms and legs. No drift. Reflexes: Deep tendon reflexes 1+ and symmetric. Plantar response down-going bilaterally. Coordination: [id number]-[id number] and [id number] testing normal. No dysmetria. Gait and Station: No obvious gait abnormality. No ataxia or instability. Extrapyramidal: Full facial expressions and blinking. No rigidity. Movements are appropriate with no tremor or abnormality. Speech: Normal; no dysarthria or tremor. Results Reviewed Results Reviewed: Laboratory Tests 06/20/25 12:53 ESR 4 REGI Screen NEGATIVE Double Strand DNA Ab 2 Assessment & Plan Assessment & Plan (1) Paresthesias: Comment: [place] [facility] [place]: WNL MRI C + T spine WWO [place] [facility] [place] 2025: WNL, small pleural eff noted Code(s): R20.2 - Paresthesia of skin Category: Medical (2) Migraine with aura: Code(s): G43.109 - Migraine with aura, not intractable, without status migrainosus Category: Medical Qualifiers: Status migrainosus presence: without status migrainosus Intractability: not intractable Qualified Code(s): G43.109 - Migraine with aura, not intractable, without status migrainosus Plan Impression: 30 years old woman, mother of 3 young children, somewhat chronically sleep-deprived, with almost daily migraine type of headaches, and paresthesias. Her brain MRI was unremarkable like her spine MRI. Her laboratories were normal. She was reassured and educated. I spent about 20 minutes counseling her and educating her. My recommendation was to consider taking a medicine to manage her migraine and associated symptoms. Recommendations: 1. Amitriptyline 10 mg at bedtime 2. Sumatriptan 50 mg 1 a day as needed Medications: New amitriptyline 10 mg PO BEDTIME 60 tabs 0RF sumatriptan succinate 50 mg orally qd prn for headache PRN; do not exceed 4 doses per 24 hrs 10 tabs 5RF migraine headache Coding Level of Care Code Est Pt Level 4 (09569) Diagnoses Paresthesias R20.2 Migraine with aura and without status migrainosus, not intractable G43.109 Status migrainosus presence: without status migrainosus Intractability: not intractable Time Spent (min) 40
== END 2025-08-08 15:50 | disposition home or self-care (01) ==
LOC: HO.HSM 15:31
PROVIDERS: PCP Internal Medicine; Visit Provider Psychiatry & Neurology Neurology
DX: R20.2 Paresthesia of skin (principal); G43.109 Migraine with aura, not intractable, without status migrainosus
CPT/HCPCS: 99214

== ENCOUNTER → 2025-08-08 15:30 | Outpatient (BNVA) | payer OTHER, SELFPAY | PROVIDERS: PCP Internal Medicine; Visit Provider Psychiatry & Neurology Neurology | DX: G43.109 Migraine with aura, not intractable, without status migrainosus (principal); R20.2 Paresthesia of skin | CPT/HCPCS: 99212 ==